=== PATIENT | male | born 1990 | race Caucasian/White ===

== ENCOUNTER 2018-04-27 06:49 | Emergency (ER) | payer MEDICAID ==
[~2018-04-27] VITALS: Ht 188 cm; Wt 86.2 kg
[~2018-04-27 06:49] MED LIST: UNOBMED
[2018-04-27 07:03] VITALS: BP 130/57
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
[2018-04-27] MEDS ORDERED: IBUPROFEN600 MG ORAL (07:14)
[2018-04-27] MEDS ORDERED: BACTRIM DS TAB1 EAC1 ORAL (07:14)
[2018-04-27] MEDS ORDERED: CEPHALEXIN500 MG ORAL (07:14)
[2018-04-27 07:40] VITALS: BP 130/57
== END 2018-04-27 07:40 | disposition left against medical advice (07) ==
LOC: EDBD → MERGE 07:25 → EMR 07:25 → EDBD 07:25 → EMR 07:40
DX: L03.114 Cellulitis of left upper limb (principal)
CPT/HCPCS: 99284